=== PATIENT | female | born 1995 | race Hispanic/Latino ===

== ENCOUNTER 2019-03-27 07:34 | Emergency (ER) | payer OTHER ==
--- NOTE | 2019-03-27 11:00 | RAD REPORT ---
EXAM DESCRIPTION: RAD - Chest Single View - 03/27/2019 8:31 am CLINICAL HISTORY: COUGH Chest pain. COMPARISON: <Comparisons> FINDINGS: Portable technique limits examination quality. The lungs are grossly clear. The heart is normal in size. No displaced fractures. IMPRESSION: No acute intrathoracic process suspected.
--- NOTE | 2019-03-27 11:13 | ER ---
Nurse's Notes [facility] Name: Jazmine Godfrye Age: 24 yrs Sex: Female : 1995 Arrival Date: 03/27/2019 Time: 07:38 Bed 6 Private MD: Diagnosis: Acute upper respiratory infection, unspecified Presentation: 03/27 07:45 Presenting complaint: Patient states: cough and "swollen throat" x 3 days. Pt states, ss "My dad was diagnosed with TB recently and I was at the hospital a lot with him. I just want to make sure it's a cold and not that.". Transition of care: patient was not received from another setting of care. Onset of symptoms was March 23, 2019. Risk Assessment: Do you want to hurt yourself or someone else? Patient reports no desire to harm self or others. Initial Sepsis Screen: Does the patient meet any 2 criteria? No. Patient's initial sepsis screen is negative. Does the patient have a suspected source of infection? No. Patient's initial sepsis screen is negative. Care prior to arrival: None. 07:45 Method Of Arrival: Ambulatory ss 07:45 Acuity: FABIANA 4 ss Historical: - Allergies: 07:47 No Known Allergies; ss - Home Meds: 07:47 None [Active]; ss - PMHx: 07:47 None; ss - PSHx: 07:47 ectopic ; ss - Immunization history:: Adult Immunizations up to date. - Social history:: Smoking status: Patient/guardian denies using tobacco. - Ebola Screening: : Patient denies exposure to infectious person Patient denies travel to an Ebola-affected area in the 21 days before illness onset. Screenin:43 Abuse screen: Denies threats or abuse. Denies injuries from another. Nutritional sv screening: No deficits noted. Tuberculosis screening: No symptoms or risk factors identified. Fall Risk None identified. Assessment: 07:50 General: Appears in no apparent distress. comfortable, well developed, Behavior is sv calm, cooperative, appropriate for age. Pain: Denies pain. Neuro: Level of Consciousness is awake, alert, obeys commands, Oriented to person, place, time, situation, Moves all extremities. Full function Gait is steady, Speech is normal. Respiratory: Airway is patent Respiratory effort is even, unlabored, Respiratory pattern is regular, symmetrical. EENT: Reports "swollen throat". Derm: Skin is pink, warm \\T\\ dry. 09:00 Reassessment: Patient appears in no apparent distress at this time. No changes from sv previously documented assessment. Patient and/or family updated on plan of care and expected duration. Pain level reassessed. Patient is alert, oriented x 3, equal unlabored respirations, skin warm/dry/pink. Vital Signs: 07:47 BP 150 / 98; Pulse 84; Resp 16; Temp 98.0(TE); Pulse Ox 100% on R/A; Weight 77.11 kg; ss Height 5 ft. 3 in. (160.02 cm); Pain 0/10; 08:59 BP 121 / 93; Pulse 90; Resp 16; Pulse Ox 99% ; sv 11:23 BP 124 / 84; Pulse 65; Resp 16; Pulse Ox 98% on R/A; la1 07:47 Body Mass Index 30.11 (77.11 kg, 160.02 cm) ED Course: 07:38 Patient arrived in ED. as 07:42 Mildred Perry, RN is Primary Nurse. sv 07:43 Lorin Moore FNP is PHCP. nh 07:43 Gerardo Armas MD is Attending Physician. nh 07:43 Arm band placed on. sv 07:43 Patient has correct armband on for positive identification. Bed in low position. Call sv light in reach. Door closed. Head of bed elevated. 07:46 Triage completed. ss 08:11 Awaiting for x-ray. sv 08:20 X-ray(s) taken. sv 08:30 CXR XRAY In Process Unspecified. EDMS 08:59 Awaiting radiology results. Awaiting re-evaluation by ER provider. sv 11:23 No provider procedures requiring assistance completed. Patient did not have IV access la1 during this emergency room visit. Administered Medications: No medications were administered Outcome: 11:13 Discharge ordered by . nh 11:23 Discharged to home ambulatory. la1 11:23 Condition: stable 11:23 Discharge instructions given to patient, Instructed on discharge instructions, follow up and referral plans. medication usage, Demonstrated understanding of instructions, follow-up care, medications, Prescriptions given X 1. 11:24 Patient left the ED. la1 Signatures: Dispatcher [employer] EDMS Mildred Perry, RN RN sv Lorin Moore, ARCHITECTURAL WOOD MODEL MAKER ARCHITECTURAL WOOD MODEL MAKER Verónica Madrid Shelby, HYUN RN ss Francisco Smith RN RN la1
--- NOTE | 2019-03-27 11:14 | EDPHYS ---
Physician Documentation [facility] Name: Jazmine Godfrey Age: 24 yrs Sex: Female : 1995 Arrival Date: 03/27/2019 Time: 07:38 Bed 6 Private MD: ED Physician Gerardo Armas HPI: 03/27 11:11 This 24 yrs old Female presents to ER via Ambulatory with complaints of Cold nh Symptoms - TB Exposure. 11:11 Onset: The symptoms/episode began/occurred 3 day(s) ago. Associated signs and symptoms: nh The patient has no apparent associated signs or symptoms. Modifying factors: The patient symptoms are alleviated by nothing, the patient symptoms are aggravated by nothing. The patient has not experienced similar symptoms in the past. Patient has recent exposure to TB by her father who is being treated. Historical: - Allergies: 07:47 No Known Allergies; ss - Home Meds: 07:47 None [Active]; ss - PMHx: 07:47 None; ss - PSHx: 07:47 ectopic ; ss - Immunization history:: Adult Immunizations up to date. - Social history:: Smoking status: Patient/guardian denies using tobacco. - Ebola Screening: : Patient denies exposure to infectious person Patient denies travel to an Ebola-affected area in the 21 days before illness onset. ROS: 11:11 Constitutional: Negative for fever, chills, and weight loss, Eyes: Negative for injury, nh pain, redness, and discharge, ENT: Negative for injury, pain, and discharge, Neck: Negative for injury, pain, and swelling, Cardiovascular: Negative for chest pain, palpitations, and edema, Abdomen/GI: Negative for abdominal pain, nausea, vomiting, diarrhea, and constipation, Back: Negative for injury and pain, : Negative for injury, bleeding, discharge, and swelling, MS/Extremity: Negative for injury and deformity, Skin: Negative for injury, rash, and discoloration, Neuro: Negative for headache, weakness, numbness, tingling, and seizure, Psych: Negative for depression, anxiety, suicide ideation, homicidal ideation, and hallucinations, Allergy/Immunology: Negative for hives, rash, and allergies, Endocrine: Negative for neck swelling, polydipsia, polyuria, polyphagia, and marked weight changes, Hematologic/Lymphatic: Negative for swollen nodes, abnormal bleeding, and unusual bruising. 11:11 Respiratory: Positive for cough, with green sputum, shortness of breath. Exam: 11:11 Constitutional: This is a well developed, well nourished patient who is awake, alert, nh and in no acute distress. Head/Face: Normocephalic, atraumatic. Eyes: Pupils equal round and reactive to light, extra-ocular motions intact. Lids and lashes normal. Conjunctiva and sclera are non-icteric and not injected. Cornea within normal limits. Periorbital areas with no swelling, redness, or edema. ENT: Nares patent. No nasal discharge, no septal abnormalities noted. Tympanic membranes are normal and external auditory canals are clear. Oropharynx with no redness, swelling, or masses, exudates, or evidence of obstruction, uvula midline. Mucous membranes moist. Neck: Trachea midline, no thyromegaly or masses palpated, and no cervical lymphadenopathy. Supple, full range of motion without nuchal rigidity, or vertebral point tenderness. No Meningismus. Chest/axilla: Normal chest wall appearance and motion. Nontender with no deformity. No lesions are appreciated. Cardiovascular: Regular rate and rhythm with a normal S1 and S2. No gallops, murmurs, or rubs. Normal PMI, no JVD. No pulse deficits. Respiratory: Lungs have equal breath sounds bilaterally, clear to auscultation and percussion. No rales, rhonchi or wheezes noted. No increased work of breathing, no retractions or nasal flaring. Abdomen/GI: Soft, non-tender, with normal bowel sounds. No distension or tympany. No guarding or rebound. No evidence of tenderness throughout. Back: No spinal tenderness. No costovertebral tenderness. Full range of motion. Skin: Warm, dry with normal turgor. Normal color with no rashes, no lesions, and no evidence of cellulitis. MS/ Extremity: Pulses equal, no cyanosis. Neurovascular intact. Full, normal range of motion. Neuro: Awake and alert, GCS 15, oriented to person, place, time, and situation. Cranial nerves II-XII grossly intact. Motor strength 5/5 in all extremities. Sensory grossly intact. Cerebellar exam normal. Normal gait. Psych: Awake, alert, with orientation to person, place and time. Behavior, mood, and affect are within normal limits. Vital Signs: 07:47 BP 150 / 98; Pulse 84; Resp 16; Temp 98.0(TE); Pulse Ox 100% on R/A; Weight 77.11 kg; ss Height 5 ft. 3 in. (160.02 cm); Pain 0/10; 08:59 BP 121 / 93; Pulse 90; Resp 16; Pulse Ox 99% ; sv 11:23 BP 124 / 84; Pulse 65; Resp 16; Pulse Ox 98% on R/A; la1 07:47 Body Mass Index 30.11 (77.11 kg, 160.02 cm) ss MDM: 07:43 Patient medically screened. nc 11:11 Data reviewed: vital signs, nurses notes, radiologic studies, I have discussed the nc patient's presentation/case with the attending Emergency Department Physician; and as a result, I will discharge patient. Counseling: I had a detailed discussion with the patient and/or guardian regarding: the historical points, exam findings, and any diagnostic results supporting the discharge/admit diagnosis, radiology results, the need for outpatient follow up, to return to the emergency department if symptoms worsen or persist or if there are any questions or concerns that arise at home. 03/27 07:51 Order name: CXR XRAY nc Administered Medications: No medications were administered Disposition: 03/27/19 11:13 Discharged to Home. Impression: Acute upper respiratory infection, unspecified. - Condition is Stable. - Discharge Instructions: Upper Respiratory Infection, Adult. - Prescriptions for Zithromax Z- Delfino 250 mg Oral Tablet - take 1 tablet by ORAL route as directed for 5 days Day 1 - take two (2) tablets one time. Day 2, 3, 4 , 5 take one (1) tablet once daily.; 6 tablet. - Medication Reconciliation Form, Thank You Letter, Antibiotic Education, Prescription Opioid Use form. - Follow up: Private Physician; When: 2 - 3 days; Reason: Recheck today's complaints. - Problem is new. - Symptoms are unchanged. Addendum: 03/29/2019 06:53 Co-signature as Attending Physician, Gerardo Armas MD I agree with the assessment and k dr plan of care. Signatures: Dispatcher [employer] EDNV Gerardo Armas MD MD [facility] [address] Lorin Moore, COMPUTER HARDWARE ENGINEER COMPUTER HARDWARE ENGINEER nc Lissette Soliz RN RN ss Francisco Smith RN RN la1 Corrections: (The following items were deleted from the chart) 03/27 11:24 11:13 03/27/2019 11:13 Discharged to Home. Impression: Acute upper respiratory la1 infection, unspecified. Condition is Stable. Forms are Medication Reconciliation Form, Thank You Letter, Antibiotic Education, Prescription Opioid Use. Follow up: Private Physician; When: 2 - 3 days; Reason: Recheck today's complaints. Problem is new. Symptoms are unchanged. nh
== END 2019-03-27 11:24 | disposition home or self-care (01) ==
LOC: ER 07:34
DX: J06.9 Acute upper respiratory infection, unspecified (principal)
CPT/HCPCS: 71045; 99283

== ENCOUNTER 2022-05-16 22:08 | Emergency (ER) | payer OTHER ==
[2022-05-16 23:11] LABS: Urine Blood 2+ (Negative); Urine Glucose Negative (Negative); Urine Protein Negative (Negative); Urine Specific Gravity >=1.030 (1.005-1.030); Urine pH 5.5 (5.0-7.0)
[2022-05-16 23:15] LABS: Absolute Lymphocytes (CBC) 2.9 K/uL (0.7-4.9); Hematocrit 40.5 % (36.0-45.0); Lymphocytes % 31.7 % (15.3-44.8); MCV 85.2 fL (80-100); MPV 8.2 fL (7.6-11.3); RBC Red Blood Cell Count 4.75 M/uL (3.86-4.86)
[2022-05-16 23:51] LABS: Potassium 3.6 mmol/L (3.5-5.1)
--- NOTE | 2022-05-17 01:40 | EDPHYS ---
Physician Documentation [facility] Name: Jazmine Raymond Age: 27 yrs Sex: Female : 1995 Arrival Date: 05/16/2022 Time: 22:24 Bed 14 Private MD: ED Physician Ronald Werner HPI: 05/16 22:31 This 27 yrs old Female presents to ER via Unassigned with complaints of kb Vaginal Bleeding, + Preg <12wks. 22:31 The patient presents to the emergency department with abdominal pain, that started kb today, described as crampy, vaginal bleeding, described as spotting. The estimated gestational age is 6 weeks. course: care: private OB physician, Leakage of Fluid: none appreciated, Ultrasound: the patient has not had an ultrasound, Risk/complications: no obvious risks or complications are appreciated. Previous pregnancies: in previous pregnancies patient has had ectopic . Associated signs and symptoms: Pertinent positives: abdominal pain, vaginal bleeding. The patient has not experienced similar symptoms in the past. The patient has not recently seen a physician. 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 kb States she is about 6 weeks . 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 - Social history:: Smoking status: Patient denies any tobacco usage or history of. ROS: 22:32 Constitutional: Negative for fever, chills, and weight loss. kb 22:32 Abdomen/GI: Positive for abdominal cramps. 22:32 : Positive for vaginal bleeding. 22:32 All other systems are negative. Exam: 22:32 Constitutional: This is a well developed, well nourished patient who is awake, alert, kb and in no acute distress. Head/Face: Normocephalic, atraumatic. ENT: Moist Mucous membranes Cardiovascular: Regular rate and rhythm with a normal S1 and S2. No gallops, murmurs, or rubs. No pulse deficits. Respiratory: Respirations even and unlabored. No increased work of breathing. Talking in full sentences Abdomen/GI: Soft, non-tender. No distention Skin: Warm, dry with normal turgor. Normal color. MS/ Extremity: Pulses equal, no cyanosis. Neurovascular intact. Full, normal range of motion. Neuro: Awake and alert, GCS 15, oriented to person, place, time, and situation. Moves all extremities. Normal gait. Psych: Awake, alert, with orientation to person, place and time. Behavior, mood, and affect are within normal limits. Vital Signs: 22:42 BP 143 / 91; Pulse 101; Resp 17; Temp 98.1(O); Pulse Ox 100% on R/A; Weight 79.38 kg; ke1 Height 5 ft. 3 in. (160.02 cm); Pain 02/03; 05/17 01:42 BP 129 / 87; Pulse 98; Resp 17; Pulse Ox 100% ; ke1 05/16 22:42 Body Mass Index 31.00 (79.38 kg, 160.02 cm) ke1 MDM: 05/16 22:30 Patient medically screened. kb 22:32 Data reviewed: vital signs, nurses notes. Data interpreted: Pulse oximetry: on room air kb is 100 %. Interpretation: normal. 05/17 01:48 Counseling: I had a detailed discussion with the patient and/or guardian regarding: the ms3 historical points, exam findings, and any diagnostic results supporting the discharge/admit diagnosis, lab results, radiology results, the need for outpatient follow up, to return to the emergency department if symptoms worsen or persist or if there are any questions or concerns that arise at home. ED course: On reevaluation patient is alert and oriented x4, in no apparent distress, nontoxic-appearing, speaking full sentences, ambulatory in emergency department. . 05/16 22:31 Order name: Abo/rh Typing; Complete Time: 23:55 kb 05/16 22:31 Order name: Basic Metabolic Panel; Complete Time: 23:55 kb 05/16 22:31 Order name: CBC with Diff; Complete Time: 23:17 kb 05/16 22:31 Order name: Quantitative Hcg; Complete Time: 23:55 kb 05/16 23:11 Order name: Urine Dipstick-Ancillary; Complete Time: 23:15 EDMS 05/16 22:31 Order name: IV Saline Lock; Complete Time: 23:13 kb 05/16 22:31 Order name: Labs collected and sent; Complete Time: 23:13 kb 05/16 22:31 Order name: NPO; Complete Time: 23:13 kb 05/16 22:31 Order name: Urine Dipstick-Ancillary (obtain specimen); Complete Time: 23:13 kb 05/16 22:31 Order name: Urine Test (obtain specimen); Complete Time: 23:13 kb 05/16 22:31 Order name: US Transvaginal Ob kb Administered Medications: No medications were administered Disposition: 02:39 Co-signature as Attending Physician, Ronald Werner DO. ms3 Disposition Summary: 05/17/22 01:39 Discharge Ordered Location: Home ms3 Condition: Stable ms3 Diagnosis - Threatened ms3 Followup: kb - With: Emergency Department - When: As needed - Reason: Worsening of condition Followup: kb - With: Private Physician - When: 2 - 3 days - Reason: Recheck today's complaints, Continuance of care, Re-evaluation by your physician Discharge Instructions: - Discharge Summary Sheet kb - Threatened Miscarriage, [id number] kb - Vaginal Bleeding During , First Trimester, [id number] kb Forms: - Medication Reconciliation Form ms3 - Thank You Letter ms3 - Antibiotic Education ms3 - Prescription Opioid Use ms3 Signatures: Dispatcher [employer] EDOma Coronel, JUAN JHA-Ronald Sousa DO DO ms3 Courtney Nieves, RN RN ke1
--- NOTE | 2022-05-17 01:40 | ER ---
Nurse's Notes [facility] Name: Jazmine Raymond Age: 27 yrs Sex: Female : 1995 Arrival Date: 05/16/2022 Time: 22:24 Bed 14 Private MD: Diagnosis: Threatened Presentation: 05/16 22:42 Chief complaint: Patient states: 6 weeks , I have seen some blood 30 mn ago and ke1 I just want to make sure everything is ok. Coronavirus screen: Vaccine status: Patient reports receiving the 2nd dose of the covid vaccine. Ebola Screen: No symptoms or risks identified at this time. Initial Sepsis Screen: Does the patient meet any 2 criteria? No. Patient's initial sepsis screen is negative. Does the patient have a suspected source of infection? No. Patient's initial sepsis screen is negative. Risk Assessment: Do you want to hurt yourself or someone else? Patient reports no desire to harm self or others. Onset of symptoms was May 16, 2022 at 22:10. 22:42 Method Of Arrival: Ambulatory ke1 22:42 Acuity: FABIANA 3 ke1 Triage Assessment: 22:48 General: Appears in no apparent distress. Behavior is anxious. Pain: Complains of pain ke1 in abdomen Pain currently is 4 out of 10 on a pain scale. at worst was 5 out of 10 on a pain scale. level that patient reports is acceptable is 5 out of 10 on a pain scale. Quality of pain is described as crampy. 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 - Social history:: Smoking status: Patient denies any tobacco usage or history of. Screenin:49 Abuse screen: Denies threats or abuse. Nutritional screening: No deficits noted. ke1 Tuberculosis screening: No symptoms or risk factors identified. Fall Risk None identified. Assessment: 22:30 Obstetrical Assessment: General assessment: awake and alert, Rupture of membranes noted.ke1 22:40 : Reports vaginal bleeding that is bright red, spotty. ke1 23:14 Reassessment: see triage. ke1 Vital Signs: 22:42 BP 143 / 91; Pulse 101; Resp 17; Temp 98.1(O); Pulse Ox 100% on R/A; Weight 79.38 kg; ke1 Height 5 ft. 3 in. (160.02 cm); Pain 4/10; 05/17 01:42 BP 129 / 87; Pulse 98; Resp 17; Pulse Ox 100% ; ke1 05/16 22:42 Body Mass Index 31.00 (79.38 kg, 160.02 cm) ke1 ED Course: 05/16 22:24 Patient arrived in ED. ja2 22:26 Oma Lemons FNP-C is PHCP. kb 22:26 Ronald Werner DO is Attending Physician. kb 22:30 Arm band placed on. ke1 22:30 Bed in low position. Call light in reach. ke1 22:37 Courtney Nieves RN is Primary Nurse. ke1 22:47 Triage completed. ke1 23:13 Inserted saline lock: 20 gauge in right antecubital area, using aseptic technique. ke1 05/17 00:14 US Transvaginal Ob In Process Unspecified. EDMS 01:43 No provider procedures requiring assistance completed. ke1 Administered Medications: No medications were administered Medication: 01:44 VIS not applicable for this client. ke1 Outcome: 01:39 Discharge ordered by . ms3 01:52 Patient left the ED. ke1 Signatures: Dispatcher [employer] EDMS Oma Lemons FNP-C CUSTOMER RELATIONS COORDINATOR-CkRonald Eisenberg DO DO ms3 Deandra Cardozo ja2 Courtney Nieves RN RN ke1 Corrections: (The following items were deleted from the chart) 05/16 23:36 23:35 : Reports vaginal bleeding that is bright red, spotty, ke1 ke1
[2022-05-17 03:34] VITALS: TEMP 98.1; O2SAT 100
[2022-05-17 03:36] VITALS: BP 129/87
--- NOTE | 2022-05-17 11:35 | RAD REPORT ---
EXAM DESCRIPTION: US - Transvaginal OB - 05/17/2022 1:18 am CLINICAL HISTORY: 27 years Female Abd cramping, , LMP: 04/06/2022, EGA: 5 weeks 5 days, FERNANDO: 01/11/2023 TECHNIQUE: Sonographic imaging of the pelvis was performed endovaginally on 05/16/2022 at 11: 18 PM COMPARISON: None FINDINGS: The uterus is normal in size and configuration and measures: 7.0 cm in length by 3.8 cm in AP dimension. There is a normal appearing intrauterine gestational sac. The average sac diameter measures 0.73 cm. A yolk sac is present but was not measured. No pole is identified at this time. The right ovary is grossly normal in size, shape and echogenicity and measures: 2.9 x 1.8 x 2.1 cm. There is normal pulsed and color Doppler flow to the right ovary. There are no right adnexal mass lesions.. The left ovary is grossly normal in size, shape and echogenicity and measures: 1.9 x 1.1 x 1.2 cm. There is normal pulsed and color Doppler flow to the left ovary. There are no left adnexal mass lesions.. There is no free fluid in the pelvis. IMPRESSION: 1. Single normal appearing intrauterine gestational sac with a yolk sac but no definite pole at this time. The overall size of the gestational sac corresponds to a gestational age of 5 weeks 3 days +/-10 days. 2. Grossly normal sonographic evaluation of the ovaries. 3. No complex adnexal mass lesions or free fluid identified. Electronically signed by: Desi Tirado DO 05/17/2022 12:56 AM CDT Due to temporary technical issues with the PACS/Fluency reporting system, reports are being signed by the in house radiologists without review as a courtesy to insure prompt reporting. The interpreting radiologist is fully responsible for the content of the report.
== END 2022-05-17 01:52 | disposition home or self-care (01) ==
LOC: ER 22:08
DX: O20.0 Threatened abortion (principal); Z3A.01 Less than 8 weeks gestation of pregnancy
CPT/HCPCS: 36415; 76817; 80048; 81003; 84702; 85025; 86900; 86901; 99283

== ENCOUNTER 2023-05-09 04:24 | Emergency (ER) | payer OTHER ==
--- OUTSIDE RECORDS SUMMARY | 2023-05-09 04:28 | XMS REPORT | Continuity of Care Document ---
:1995 Author Organization [facility] t Address [address] [facility] [address] [place] [address] Care Team Providers Name Role Phone Pcp, Patient Does Not Have A Primary Care Physician [id number] Marlena Ramirez MD Attending Clinician Lab, Ang - Db Attending Clinician Unavailable MARLENA RAMIREZ Attending Clinician Unavailable Doctor Unassigned, [place] Attending Clinician Unavailable SUBHASH GREEN Attending Clinician Unavailable BRITTANY JACOBO Attending Clinician Unavailable Payers Payer Name Policy Type Policy Number Effective Date Expiration Date S ource Problems Condition Condition Condition Status Onset Resolution Last Treating Co mments Source Name Details Category Date Date Treatment Clinician Date Missed Missed Disease Active Univers 06-04 ity of 00:00: [place] 00 [facility] Branch Pap smear Pap smear Disease Active Overview: Univers of cervix of cervix 07-19 Formattin i ty of with with 00:00: g of this [place] ASCUS, ASCUS, 00 note Medical cannot cannot might be Branch exclude exclude different HGSIL HGSIL from the original. Referred for colpo Asthma Asthma Disease Active Overview: Univer s 01-17 Formattin ity of 00:00: g of this [place] 00 note Medical might be Branch different from the original. 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 Social History Social Habit Start Date Stop Date Quantity Comments Source ASSERTION 2022-04-20 [facility] 00:00:00 [facility] Exposure to 2022-06-14 2022-06-24 Not sure [facility] SARS-CoV-2 00:00:00 13:07:00 [facility] (event) [place] Alcohol intake 2022-06-18 2022-06-18 Ex-drinker [facility] 00:00:00 00:00:00 (finding) [facility] Tobacco use and 2022-05-20 2022-05-20 Smokeless tobacco Un iversity of exposure 00:00:00 00:00:00 non-user [facility] History of 2013-07-19 Passive smoker [facility] tobacco use 00:00:00 [facility] Sex Ass[birth year] At [birth year] Universit y of 00:00:00 00:00:00 [facility] Smoking Status Start Date Stop Date Source Never smoked tobacco [facility] Medications Ordered Filled Start Stop Current Ordering Indication Dosage Frequency Signature Comments Components Source Medication Medication Date Date Medication? Clinician (SIG) Name Name No known No No known Unive rs medications - medication it y of 14:49: [address] No known No No known Unive rs medications 8- medication it y of 14:49: [address] No known No No known Unive rs medications 8- medication it y of 14:49: [address] No known No No known Unive rs medications 8- medication it y of 12:56: s [address] norgestimat Yes [id number] 1{tbl} Take 1 Univers e-ethinyl 3-02 tablet by ity o f estradioL 00:00: mouth [place] 0.25-35 00 daily. Medical mg-mcg per Branch tablet norgestimat Yes [id number] 1{tbl} Take 1 Univers e-ethinyl 3-02 tablet by ity o f estradioL 00:00: mouth [place] 0.25-35 00 daily. Medical mg-mcg per Branch tablet norgestimat 2021- No [id number] 1{tbl} Take 1 Univers e-ethinyl 3-02 - tablet by ity of estradioL 00:00: 00:00 mouth [place] 0.25-35 00 :00 daily. Medical mg-mcg per Branch tablet Immunizations Ordered Filled Immunization Date Status Comments Sour e Immunization Name Name [facility] 2015-01-31 Completed University of 00:00:00 [facility] 2015-01-31 Completed University of 00:00:00 [facility] 2015-01-31 Completed University of 00:00:00 [facility] 2015-01-31 Completed University of 00:00:00 [facility] 2015-01-31 Completed University of 00:00:00 [facility] 2015-01-31 Completed University of 00:00:00 [facility] 2015-01-31 Completed University of 00:00:00 [facility] Td 2009-06-18 Completed University of 00:00:00 [facility] Td 2009-06-18 Completed University of 00:00:00 [facility] Td 2009-06-18 Completed University of 00:00:00 [facility] Td 2009-06-18 Completed University of 00:00:00 [facility] Td 2009-06-18 Completed University of 00:00:00 [facility] Td 2009-06-18 Completed University of 00:00:00 [facility] Td 2009-06-18 Completed University of 00:00:00 [facility] Vital Signs Vital Name Observation Time Observation Value Comments Source Systolic blood 2022-06-18 18:49:00 128 mm[Hg] Univer sity of pressure [facility] Diastolic blood 2022-06-18 18:49:00 88 mm[Hg] Unive rsity of pressure [facility] Heart rate 2022-06-18 18:48:00 81 /min [facility] Respiratory rate 2022-06-18 18:48:00 18 /min Univ ersity of [facility] Body height 2022-06-18 18:48:00 160 cm [facility] Body weight 2022-06-18 18:48:00 84.369 kg Universi ty of [place] [facility] BMI 2022-06-18 18:48:00 32.95 kg/m2 Universi ty of [facility] Oxygen saturation in 2022-06-18 18:48:00 99 /min University Arterial blood by [facility] Pulse oximetry Branch Systolic blood 2022-06-04 16:26:00 136 mm[Hg] Univer sity of pressure [facility] Diastolic blood 2022-06-04 16:26:00 87 mm[Hg] Unive rsity of [facility] Heart rate 2022-06-04 16:26:00 88 /min Universi ty of [facility] Body temperature 2022-06-04 16:26:00 36.78 Urmila [facility] Respiratory rate 2022-06-04 16:26:00 18 /min [facility] ersity of [facility] Body height 2022-06-04 16:26:00 160 cm Universi ty of [facility] Body weight 2022-06-04 16:26:00 84.823 kg Universi ty of [facility] BMI 2022-06-04 16:26:00 33.13 kg/m2 Universi ty of [facility] Systolic blood 2022-05-20 13:45:00 114 mm[Hg] Univer sity of [facility] Diastolic blood 2022-05-20 13:45:00 74 mm[Hg] Unive rsity of pressure [facility] Heart rate 2022-05-20 13:44:00 91 /min Universi ty of [facility] Body temperature 2022-05-20 13:44:00 36.72 Urmila [facility] ersity of [facility] Body height 2022-05-20 13:44:00 160 cm Universi ty of [facility] Body weight 2022-05-20 13:44:00 83.87 kg Universi ty of [facility] BMI 2022-05-20 13:44:00 32.75 kg/m2 Universi ty of [facility] Procedures Procedure Date / Time Performing Clinician Source Performed POCT TEST 2022-06-18 18:54:00 Marlena Ramirez Universi ty of [facility] 2022-06-04 05:01:00 Doctor Unassigned, No Univer sit of [facility] Name Medical Branch POCT URINALYSIS W/O 2022-06-04 00:00:00 Marlena Ramirez [facility] SPECIFIC GRAVITY [facility] GC & CHLAMYDIA 2022-05-20 14:40:00 [facility] Marlena [place] o f [place] AMPLIFIED [facility] TRICHOMONAS AMPLIFIED 2022-05-20 14:40:00 Jc Ramirezemily roldan [facility] POCT TEST 2022-05-20 00:00:00 Tito Marlena [facility] POCT URINALYSIS W/O 2022-05-20 00:00:00 Marlena Ramirez [facility] Encounters Start End Encounter Admission Attending Care Care Encounter Source Date/Time Date/Time Type Type Clinicians Facility Department ID 2022-06-27 2022-06-27 Telephone Marlena Ramirez [facility] NGUYEN [id number] Univers 00:00:00 00:00:00 SHELIA [id number] it y of [id number] [id number] [address] 2022-06-24 2022-06-24 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 [id number] [place] as VALORIE?BLEA [id number] [address] MEDICAL OFFICE BUILDING 2022-06-24 2022-06-24 Outpatient R MARLENA RAMIREZ [facility] [id number] Univers 13:15:00 13:15:00 ity of [facility] 2022-06-18 2022-06-18 Outpatient R MARLENA RAMIREZ [facility] [id number] Univers 13:30:00 14:19:40 ity [facility] 2022-06-18 2022-06-18 Routine Marlena Ramirez [facility] 1.2.840.114 [id number] Univers 13:30:00 14:19:40 SHELIA [id number] i ty of Visit [place] [id number] [facility] Branch 2022-06-17 2022-06-17 Outpatient R MARLENA RAMIREZ [facility] [id number] Univers 13:15:00 13:15:00 ity of [facility] 2022-06-04 2022-06-04 Outpatient R MARLENA RAMIREZ [facility] [id number] Univers 11:15:00 11:59:44 ity of [facility] 2022-06-04 2022-06-04 Routine [facility] 1.2.840.114 [id number] Univers 11:15:00 11:59:44 ANGLEJUAN JOSÉ 350.1.13.10 ity of Visit [place] 4.2.7.2.686 Artemio mejía [facility] [id number] In madai [facility] 134 Branch BUILDING 2022-06-04 2022-06-[address] 1.2.840.114 [id number] Univers 00:00:00 00:00:00 Only Unassigned, HCRISSIE [id number] ity of [place] [facility] 4.2.7.2.686 [place] as [id number] [facility] 009 Branch 2022-06-03 2022-06-03 Outpatient R MARLENA RAMIREZ [facility] [id number] Univers 13:30:00 13:30:00 ity of [facility] 2022-05-29 2022-05-29 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 Lab, David - Tremaine [facility] 1.2.840.1 [id number] Univers 14:00:00 14:15:00 Visit Marlena Ramirez [id number] ity of [place] [id number] [place] as VALORIE?BLEA [id number] In dical TOO [address] [place] MEDICAL OFFICE BUILDING 2022-05-29 2022-05-29 Outpatient R NORMA [facility] [id number] Univers 14:00:00 14:00:00 SUBHASH ity o f [facility] 2022-05-29 2022-05-29 Outpatient R MARLENA RAMIREZ [facility] [id number] Univers 14:00:00 14:00:00 ity [facility] 2022-05-20 2022-05-20 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 Lab, David - Db [facility] 1.2.840.1 [id number] Univers 10:45:00 11:00:00 Visit Marlena Ramirez [id number] ity of [place] [id number] [place] VALORIE?BLEA [id number] In madai [address] MEDICAL OFFICE BUILDING 2022-05-20 2022-05-20 Outpatient R MARLENA RAMIREZ [facility] [id number] Univers 08:30:00 09:09:21 ity of [facility] 2022-05-20 2022-05-20 Initial Marlena Ramirez [facility] 1.2.840.114 [id number] Univers 08:30:00 09:09:21 SHELIA 350.1.13.10 i ty of Visit [facility] [place] [id number] [facility] 134 Branch 2022-05-20 2022-05-[address] 1.2.840.114 [id number] Univers 00:00:00 00:00:00 Only Unassigned, CHRISSIE 350.1.13.10 ity of [place] [facility] 4.2.7.2.686 [place] as [id number] [facility] 009 Branch 2021-07-10 2021-07-10 Outpatient Yael JACOBO [facility] [id number] Univers 08:00:00 08:00:00 [facility] 2020-12-26 2020-12-26 Outpatient Yael JACOBO [facility] [id number] Univers 14:30:00 14:30:00 [facility] Results Test Description Test Time Test Comments Results Result Comments Source POCT TEST 2022-06-18 18:54:00 Test Item Value Reference Range Interpretation Comme nts POCT PREG (test code = 1605) Positive On board controls acceptable with C Line (test code = 3574) Yes POCT PREG LOT # (test code = 3575) POCT PREG TEST DATE (test code = 3576) [facility] SPECIFIC [id number] 16:24:00 Test Item Value Reference Range Interpretation Comments POCT PH U (test code = 3254) n/a 5-8 POCT U LEUK EST (test code = n/a Negative - Negative 3263) POCT U NIT (test code = 3262) n/a Negative - Negative POCT U PROT (test code = 3259) negative Negative - Negative POCT U GLU (test code = 3256) negative Negative - Negative POCT U KETONE (test code = 3258) n/a Negative - Negative POCT U BLD (test code = 3257) n/a Negative - Negative [facility] [id number] 13:49:00 Test Item Value Reference Range Interpretation Comments POCT PREG (test code = 1605) Positive On board controls acceptable with C Yes Line (test code = 3574) POCT PREG LOT # (test code = 3575) POCT PREG TEST DATE (test code = 3576) [facility] W/O SPECIFIC [id number] 13:49:00 Test Item Value Reference Range Interpretation Comments POCT PH U (test code = 3254) n/a 5-8 POCT U LEUK EST (test code = n/a Negative - Negative 3263) POCT U NIT (test code = 3262) n/a Negative - Negative POCT U PROT (test code = 3259) negative Negative - Negative POCT U GLU (test code = 3256) normal Negative - Negative POCT U KETONE (test code = 3258) n/a Negative - Negative POCT U BLD (test code = 3257) n/a Negative - Negative [facility]
[2023-05-09 04:56] LABS: Absolute Lymphocytes (CBC) 1.9 K/uL (0.7-4.9); Hematocrit 35.7 % (36.0-45.0); Lymphocytes % 16.4 % (15.3-44.8); MCV 84.6 fL (80-100); MPV 8.2 fL (7.6-11.3); RBC Red Blood Cell Count 4.22 M/uL (3.86-4.86)
[2023-05-09 05:11] LABS: Potassium 3.4 mEq/L (3.5-5.1)
[2023-05-09] MEDS ORDERED: NA CHLORIDE 0.9% 500 ML ONE (05:50)
[2023-05-09] MEDS ORDERED: POTASSIUM CL SA 10 MEQ TAB PO ONE (05:50)
[2023-05-09] MEDS ORDERED: CALCIUM CARBONATE 500 MG TAB ONE (05:54)
--- NOTE | 2023-05-09 06:11 | ER ---
Nurse's Notes [facility] Name: Jazmine Raymond Age: 28 yrs Sex: Female : 1995 Arrival Date: 05/09/2023 Time: 04:24 Bed 5 Private MD: Diagnosis: Paresthesia of skin Presentation: 05/09 04:46 Chief complaint: Patient states: bilateral hand hand arm numbness/tingling and upper lg3 back pain beginning at 2300 yesterday. Coronavirus screen: Client denies travel out of the [place] in the last 14 days. At this time, the client does not indicate any symptoms associated with coronavirus-19. Ebola Screen: No symptoms or risks identified at this time. Initial Sepsis Screen: Does the patient meet any 2 criteria? No. Patient's initial sepsis screen is negative. Does the patient have a suspected source of infection? No. Patient's initial sepsis screen is negative. Risk Assessment: Do you want to hurt yourself or someone else? Patient reports no desire to harm self or others. Onset of symptoms was May 08, 2023. 04:46 Method Of Arrival: Ambulatory lg3 04:46 Acuity: FABIANA 3 lg3 Triage Assessment: 04:52 General: Appears in no apparent distress. comfortable, Behavior is cooperative, lg3 anxious. Pain: Complains of pain in left scapular area and right scapular area. EENT: No deficits noted. No signs and/or symptoms were reported regarding the EENT system. Neuro: No deficits noted. Ying Agitation-Sedation Scale (RASS): 0 - Alert and Calm Level of Consciousness is awake, alert, obeys commands, Oriented to person, place, time, situation, Reports numbness in right hand, left hand, right arm and left arm. Cardiovascular: No deficits noted. Denies chest pain, shortness of breath, Capillary refill < 3 seconds Clubbing of nail beds is absent JVD is absent Patient's skin is warm and dry. Respiratory: No deficits noted. Airway is patent Respiratory effort is even, unlabored, Respiratory pattern is regular, symmetrical. GI: No deficits noted. No signs and/or symptoms were reported involving the gastrointestinal system. Abdomen is round non-distended. : No deficits noted. No signs and/or symptoms were reported regarding the genitourinary system. Derm: No deficits noted. No signs and/or symptoms reported regarding the dermatologic system. Skin is intact, is healthy with good turgor, Skin is dry, Skin is normal, Skin temperature is warm. Musculoskeletal: No deficits noted. Circulation, motion, and sensation intact. Range of motion: intact in all extremities, Reports pain in back. 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 - Social history:: Smoking status: Patient denies any tobacco usage or history of. Patient/guardian denies using alcohol, street drugs. - Family history:: not pertinent. - Hospitalizations: : No recent hospitalization is reported. Screenin:57 [facility] ED Fall Risk Assessment (Adult) History of falling in the last 3 months, rv including since admission No falls in past 3 months (0 pts) Confusion or Disorientation No (0 pts) Intoxicated or Sedated No (0 pts) Impaired Gait No (0 pts) Mobility Assist Device Used No (0 pt) Altered Elimination No (0 pt) Score/Fall Risk Level 0 - 2 = Low Risk Oriented to surroundings, Maintained a safe environment, Educated pt \T\ family on fall prevention, incl call for assistance when getting out of bed, Assessed \T\ reinforced patient's understanding of fall precautions, Provided non-skid footwear, Hourly rounding (assess needs \T\ fall precautionary measures) done, Used ambulatory aids as needed (educated on \T\ assisted with), Used gait belt as appropriate. Abuse screen: Denies threats or abuse. Denies injuries from another. Nutritional screening: No deficits noted. Tuberculosis screening: No symptoms or risk factors identified. Assessment: 05:01 General: see triage assessment. lg3 06:00 Reassessment: Patient appears in no apparent distress at this time. No changes from lg3 previously documented assessment. Patient and/or family updated on plan of care and expected duration. Pain level reassessed. Patient is alert, oriented x 3, equal unlabored respirations, skin warm/dry/pink. Vital Signs: 04:46 BP 117 / 74; Pulse 86; Resp 18 S; Temp 98.4(O); Pulse Ox 100% on R/A; Weight 86.18 kg lg3 (R); Height 5 ft. 3 in. (R); 06:00 BP 126 / 74; Pulse 90; Resp 18 S; Pulse Ox 99% on R/A; lg3 04:46 Body Mass Index 33.66 (86.18 kg, 160.02 cm) lg3 ED Course: 04:27 Patient arrived in ED. ag3 04:28 Tor Hubbard MD is Attending Physician. rn 04:46 Sarah Hill RN is Primary Nurse. lg3 04:52 Triage completed. lg3 04:52 Arm band placed on right wrist. lg3 04:57 Basic Metabolic Panel Sent. rv 04:57 CBC with Diff Sent. rv 04:57 Inserted saline lock: 20 gauge in right antecubital area, using aseptic technique. rv Blood collected. 04:58 Patient has correct armband on for positive identification. Provided Education on: ct rv scan, , stroke, anxiety. 05:32 CT Head C Spine In Process Unspecified. EDMS 06:10 Chris Guzmán MD is Referral Physician. rn 06:29 No provider procedures requiring assistance completed. IV discontinued, intact, lg3 bleeding controlled, No redness/swelling at site. Pressure dressing applied. Administered Medications: 05:50 Drug: Potassium Chloride PO 40 mEq Route: PO; lg3 05:50 Follow up: Response: No adverse reaction lg3 05:50 Drug: Calcium Carbonate PO 500 mg 1 tablet Route: PO; lg3 05:50 Follow up: Response: No adverse reaction lg3 05:50 Drug: NS 0.9% IV 500 ml Route: IV; Rate: bolus; Site: right antecubital; lg3 06:30 Follow up: IV Status: Completed infusion; IV Intake: 500ml lg3 Medication: 04:58 VIS not applicable for this client. rv Intake: 06:30 IV: 500ml; Total: 500ml. lg3 Outcome: 06:10 Discharge ordered by MD. rn 06:29 Discharged to home ambulatory. lg3 06:29 Condition: stable 06:29 Discharge instructions given to patient, Instructed on discharge instructions, follow up and referral plans. Demonstrated understanding of instructions, follow-up care. 06:30 Patient left the ED. lg3 Signatures: Dispatcher [employer] EDMS Tor Hubbard MD MD rn Vicente, Ronaldo, RN RN rv Gomez, Alice ag3 Sarah Hill RN RN lg3 Corrections: (The following items were deleted from the chart) 06:29 05:53 BP 126 / 74; Pulse 90bpm; Resp 18bpm; Spontaneous; Pulse Ox 99% RA; lg3 lg3 06:29 05:53 Reassessment: Patient appears in no apparent distress at this time. No changes lg3 from previously documented assessment. Patient and/or family updated on plan of care and expected duration. Pain level reassessed. Patient is alert, oriented x 3, equal unlabored respirations, skin warm/dry/pink. lg3
--- NOTE | 2023-05-09 06:11 | EDPHYS ---
Physician Documentation [facility] Name: Jazmine Raymond Age: 28 yrs Sex: Female : 1995 Arrival Date: 05/09/2023 Time: 04:24 Bed 5 Private MD: ED Physician Tor Hubbard HPI: 05/09 04:45 This 28 yrs old Female presents to ER via Unassigned with complaints of rn Numbness Of Arm, Numbness Of Lips, 16 weeks . 04:45 The patient presents to the emergency department with paresthesias of the left upper rn extremity, right upper extremity. Onset: The symptoms/episode began/occurred yesterday. Associated signs and symptoms: Pertinent positives: This patient does not have any pertinent positives. Pertinent negatives: fever, headache, neck stiffness, seizure, syncope, near-syncope, blurred vision, double vision, visual field changes, loss of vision, weakness. Severity of symptoms: At their worst the symptoms were moderate in the emergency department the symptoms have improved. The patient has not experienced similar symptoms in the past. The patient has not recently seen a physician. Pt reports tingling to face and bilateral arms. 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 Reports 16 weeks , her OB is monitoring her BP, no meds at this time, but told by her OB to take baby aspirin. No head trauma. . 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 - Social history:: Smoking status: Patient denies any tobacco usage or history of. Patient/guardian denies using alcohol, street drugs. - Family history:: not pertinent. - Hospitalizations: : No recent hospitalization is reported. ROS: 04:45 Constitutional: Negative for fever, chills, and weight loss, Eyes: Negative for injury, rn pain, redness, and discharge, Neck: Negative for injury, pain, and swelling, Cardiovascular: Negative for chest pain, palpitations, and edema, Respiratory: Negative for shortness of breath, cough, wheezing, and pleuritic chest pain, Abdomen/GI: Negative for abdominal pain, nausea, vomiting, diarrhea, and constipation, Back: Negative for injury and pain, MS/Extremity: Negative for injury and deformity, Skin: Negative for injury, rash, and discoloration, Neuro: Negative for headache, weakness, and seizure. Exam: 04:45 Constitutional: This is a well developed, well nourished patient who is awake, alert, rn and in no acute distress. Head/Face: Normocephalic, atraumatic. Neck: Trachea midline, no masses palpated. Supple, full range of motion without nuchal rigidity, or vertebral point tenderness. No Meningismus. Cardiovascular: Regular rate and rhythm. No pulse deficits. Respiratory: Mild tachypnea, no retractions, able to slow breathing with coaching MS/ Extremity: Pulses equal, no cyanosis. Neurovascular intact. Full, normal range of motion. Equal circumference. Neuro: Awake and alert, GCS 15, oriented to person, place, time, and situation. Cranial nerves II-XII grossly intact. Motor strength 5/5 in all extremities. Sensory grossly intact. Cerebellar exam normal. Normal gait. Vital Signs: 04:46 BP 117 / 74; Pulse 86; Resp 18 S; Temp 98.4(O); Pulse Ox 100% on R/A; Weight 86.18 kg lg3 (R); Height 5 ft. 3 in. (R); 06:00 BP 126 / 74; Pulse 90; Resp 18 S; Pulse Ox 99% on R/A; lg3 04:46 Body Mass Index 33.66 (86.18 kg, 160.02 cm) lg3 MDM: 04:28 Patient medically screened. rn 04:45 ED course: Pt states was having muscle spasms of back, was using massage device to back rn and neck prior to tingling. . 06:09 Data reviewed: vital signs, nurses notes, lab test result(s), radiologic studies, CT rn scan, and as a result, I will discharge patient. Counseling: I had a detailed discussion with the patient and/or guardian regarding: the historical points, exam findings, and any diagnostic results supporting the discharge/admit diagnosis, lab results, radiology results, the need for outpatient follow up, to return to the emergency department if symptoms worsen or persist or if there are any questions or concerns that arise at home. Response to treatment: the patient's symptoms have markedly improved after treatment, and as a result, I will discharge patient. Special discussion: I discussed with the patient/guardian in detail that at this point there is no indication for admission to the hospital. It is understood, however, that if the symptoms persist or worsen the patient needs to return immediately for re-evaluation. Based on the history and exam findings, there is no indication for further emergent testing or inpatient evaluation. I discussed with the patient/guardian the need to see the neurologist for further evaluation of the symptoms. I discussed with the patient/guardian the need to see the OB Gyne specialist for further evaluation of the symptoms. ED course: NO acute findings on imaging, + hypokalemia and hypocalcemia, is bilateral, and improving rapidly, will dc home with return precautions and OB/neuro if continues.. 05/09 04:43 Order name: CBC with Diff; Complete Time: 05:31 rn 05/09 04:43 Order name: Basic Metabolic Panel; Complete Time: 05:31 rn 05/09 04:43 Order name: CT Head C Spine rn 05/09 04:43 Order name: IV Start; Complete Time: 04:56 rn Administered Medications: 05:50 Drug: Potassium Chloride PO 40 mEq Route: PO; lg3 05:50 Follow up: Response: No adverse reaction lg3 05:50 Drug: Calcium Carbonate PO 500 mg 1 tablet Route: PO; lg3 05:50 Follow up: Response: No adverse reaction lg3 05:50 Drug: NS 0.9% IV 500 ml Route: IV; Rate: bolus; Site: right antecubital; lg3 06:30 Follow up: IV Status: Completed infusion; IV Intake: 500ml lg3 Disposition Summary: 05/09/23 06:10 Discharge Ordered Location: Home rn Problem: new rn Symptoms: have improved rn Condition: Stable rn Diagnosis - Paresthesia of skin rn Followup: rn - With: Chris Guzmán MD - When: As needed - Reason: Recheck today's complaints, Re-evaluation by your physician Discharge Instructions: - Discharge Summary Sheet rn - Marj rn Forms: - Medication Reconciliation Form rn - Thank You Letter rn - Antibiotic rn surgical - Prescription Opioid Use rn - Patient Portal Instructions rn Signatures: Dispatcher [employer] Tor Chang MD MD rn Gibson, Lacie, RN RN lg3
[2023-05-09 07:21] VITALS: TEMP 98.4
[2023-05-09 07:22] VITALS: BP 126/74; O2SAT 99
--- NOTE | 2023-05-09 12:25 | RAD REPORT ---
EXAM DESCRIPTION: CT - Head C Spine Mpr Wo Con - 05/09/2023 6:39 am CLINICAL HISTORY: The patient is 28 years old and is Female; paresthesias bilateral arms TECHNIQUE: Axial computed tomography images of the head/brain and cervical spine without intravenous contrast. Sagittal and coronal reformatted images were created and reviewed. This CT exam was pe rformed using one or more of the following dose reduction techniques: automated exposure control, a djustment of the mA and/or kV according to patient size, and/or use of iterative reconstruction techn ique. COMPARISON: No relevant prior studies available. FINDINGS: Brain: Unremarkable. No hemorrhage. No significant white matter disease. No edema. Ventricles: Unremarkable. No ventriculomegaly. Skull: No acute fracture. Sinuses: Unremarkable as visualized. No acute sinusitis. Mastoid air cells: Unremarkable as visualized. No mastoid effusion. Vertebrae: Unremarkable. No acute fracture. Normal alignment. Discs/spinal canal/neural foramina: No acute findings. No spinal canal stenosis. Soft tissues: Unremarkable. IMPRESSION: No acute intracranial abnormality. No acute findings in the cervical spine. Electronically signed by: Edvin Kyle MD 05/09/2023 5:50 AM CDT Due to temporary technical issues with the PACS/Fluency reporting system, reports are being signed by the in house radiologists without review as a courtesy to insure prompt reporting. The interpreting radiologist is fully responsible for the content of the report.
== END 2023-05-09 06:30 | disposition home or self-care (01) ==
LOC: ER 04:24
DX: O26.892 Other specified pregnancy related conditions, second trimester (principal); R20.2 Paresthesia of skin; Z3A.16 16 weeks gestation of pregnancy; Z79.82 Long term (current) use of aspirin
CPT/HCPCS: 85025; 80048; 36415; 70450; 72125; 96360; 99284; J7040